=== PATIENT | female | born 1995 | race Caucasian/White ===

== ENCOUNTER 2017-05-21 17:59 | Emergency (ER) | payer BC ==
[2017-05-21 18:18] VITALS: BP 127/96
[2017-05-21] MEDS ORDERED: Sodium Chloride 0.9% 10 ML Syringe FLUSH PRN ×2 (19:01→20:42)
[2017-05-21] MEDS ORDERED: Sodium Chloride 0.9% 1,000 ML IV ONE (19:01)
[2017-05-21] MEDS ORDERED: HYDROmorphone 0.5 MG/0.5 ML Syringe IVPUSH ONE ×2 (19:02→20:03)
[2017-05-21] MEDS ORDERED: Ondansetron 4 MG/2 ML SDV IVPUSH ONE (19:03)
--- NOTE | 2017-05-21 19:09 | EDM.PDOC ---
ED HPI GENERAL MEDICAL PROBLEM - General Chief Complaint: Genitourinary Problem Stated Complaint: BLADER INFECTION Time Seen by Provider: 05/21/17 18:43 Source of Information: Reports: Patient History Limitations: Reports: No Limitations - History of Present Illness INITIAL COMMENTS - FREE TEXT/NARRATIVE: Patient is a 21-year-old female who presents to the ED complaining of generalized body aches, painful urination, and right sided CVA tenderness. Patient states she was diagnosed with a pretty bad UTI this past Monday and was placed on Macrobid and Azo. Patient states she was instructed to come back to the ED if she develops back discomfort or fever. Thus prompted ED visit. Patient states she recently came down with a cold during this time so is unclear if this is related to the recent viral upper respiratory infection. She has some sinus congestion, cough, and mild sore throat secondary to postnasal drip. Patient denies being . Past medical history: Acne Current medications include Macrobid, isotretinoin, and control pill Right Lower Back Pain Score (Numeric/FACES): 6 - Related Data Allergies Allergy/AdvReac Type Severity Reaction Status Date / Time hydrocodone Allergy Itching Verified 05/21/17 18:17 Home Meds: Home Meds Levonorgestrel-Ethin Estradiol [Orsythia-28 Tablet] 1 tab PO DAILY 02/17/16 [ History] Nitrofurantoin Macrocrystal [Nitrofurantoin] 25 mg PO Q12H 05/21/17 [History] Phenazopyridine HCl [Azo Urinary Pain Relief] 1 tab PO DAILY 05/21/17 [History] Past Medical History - Past Surgical History HEENT Surgical History: Reports: Adenoidectomy, Tonsillectomy GI Surgical History: Reports: Cholecystectomy Musculoskeletal Surgical History: Reports: Other (See Below) Other Musculoskeletal Surgeries/Procedures:: removal of osteochondroma left knee Social & Family History - Family History Family Medical History: Noncontributory - Tobacco Use Smoking Status *Q: Never Smoker - Caffeine Use Caffeine Use: Reports: Soda - Recreational Drug Use Recreational Drug Use: No - Living Situation & Occupation Living situation: Reports: Single, with Family Occupation: Employed ED ROS GENERAL - Review of Systems Review Of Systems: See Below Constitutional: Reports: Fever, Chills, Malaise, Decreased Appetite HEENT: Reports: Rhinitis, Sinus Problem, Throat Pain. Denies: Ear Pain, Throat Swelling Respiratory: Reports: Cough. Denies: Shortness of Breath, Sputum GI/Abdominal: Reports: Abdominal Pain (suprapubic), Decreased Appetite, Nausea ( mild). Denies: Diarrhea, Vomiting : Reports: Dysuria, Flank Pain (right sided CVA) Musculoskeletal: Reports: Back Pain ED EXAM, RENAL/ - Physical Exam Exam: See Below Exam Limited By: No Limitations General Appearance: Alert, WD/WN, No Apparent Distress Ears: Normal External Exam, Normal Canal, Hearing Grossly Normal, Normal TMs Nose: Normal Inspection, Normal Mucosa Throat/Mouth: Normal Inspection, Normal Oropharynx, Normal Voice, No Airway Compromise Neck: Normal Inspection, Supple, Non-Tender, Full Range of Motion. No: Lymphadenopathy (L), Lymphadenopathy (R) Respiratory/Chest: No Respiratory Distress, Lungs Clear, Normal Breath Sounds, No Accessory Muscle Use, Chest Non-Tender Cardiovascular: Normal Peripheral Pulses, Regular Rate, Rhythm GI/Abdominal: Normal Bowel Sounds, Soft, No Organomegaly, No Distention, Tender (Suprapubic tenderness ) Extremities: Normal Inspection Neurological: Alert, Oriented, CN II-XII Intact, Normal Cognition, No Motor/ Sensory Deficits Psychiatric: Normal Affect, Normal Mood Skin Exam: Warm, Dry, Intact, Normal Color Course - Vital Signs Last Recorded V/S: Last Vital Signs Temp 97.4 F 05/21/17 18:14 Pulse 132 H 05/21/17 18:14 Resp 16 05/21/17 18:14 BP 127/96 H 05/21/17 18:14 Pulse Ox 100 05/21/17 18:14 - Orders/Labs/Meds Orders: Active Orders 24 hr Category Date Time Status Peripheral IV Care [RC] . DIRECTED Care 05/21/17 19:01 Active Abdomen Pelvis w Cont [CT] Stat Exams 05/21/17 20:31 Taken Sodium Chloride 0.9% [Saline Flush] Med 05/21/17 19:01 Active 10 ml FLUSH ASDIRECTED PRN Sodium Chloride 0.9% [Saline Flush] Med 05/21/17 20:42 Active 10 ml FLUSH ONETIME PRN cefTRIAXone [Rocephin] 1 gm Med 05/21/17 22:00 Active Lidocaine 1% [Xylocaine 1%] 2.1 ml IM Q24H Peripheral IV Insertion Adult [OM.PC] Stat Oth 05/21/17 19:01 Ordered Medication Orders Ceftriaxone Sodium 1 gm/ (Lidocaine HCl 2.1 ml) 0 gm IM Q24H NHI Last Admin: 05/21/17 22:00 Dose: 1 inj Sodium Chloride (Saline Flush) 10 ml FLUSH ASDIRECTED PRN PRN Reason: Keep Vein Open Last Admin: 05/21/17 19:17 Dose: 10 ml Sodium Chloride (Saline Flush) 10 ml FLUSH ONETIME PRN PRN Reason: IV FLUSH Last Admin: 05/21/17 20:55 Dose: 10 ml Labs: Laboratory Tests 05/21/17 05/21/17 05/21/17 Range/Units 18:30 19:10 19:10 WBC 10.65 H (3.98-10.04) K/mm3 RBC 4.63 (3.98-5.22) M/mm3 Hgb 14.4 (11.2-15.7) gm/L Hct 42.3 (34.1-44.9) % MCV 91.4 (79.4-94.8) fl MCH 31.1 (25.6-32.2) pg MCHC 34.0 (32.2-35.5) g/dl RDW Std Deviation 42.5 (36.4-46.3) fL Plt Count 250 (182-369) K/mm3 MPV 10.0 (9.4-12.3) fl Neut % (Auto) 71.5 H (34.0-71.1) % Lymph % (Auto) 19.2 L (19.3-51.7) % [place] % (Auto) 8.7 (4.7-12.5) % Eos % (Auto) 0.4 L (0.7-5.8) Baso % (Auto) 0.1 (0.1-1.2) % Neut # (Auto) 7.62 H (1.56-6.13) K/mm3 Lymph # (Auto) 2.04 (1.18-3.74) K/mm3 [place] # (Auto) 0.93 H (0.24-0.36) K/mm3 Eos # (Auto) 0.04 (0.04-0.36) K/mm3 Baso # (Auto) 0.01 (0.01-0.08) K/mm3 Manual Slide Review Abnormal smear Sodium 138 (136-145) mEq/L Potassium 3.5 (3.5-5.1) mEq/L Chloride 100 (98-107) mEq/L Carbon Dioxide 28 (21-32) mEq/L Anion Gap 13.5 (5-15) BUN 9 (7-18) mg/dL Creatinine 0.9 (0.55-1.02) mg/dL Est Cr Clr Drug Dosing 107.10 mL/min Estimated GFR (MDRD) > 60 (>60) mL/min BUN/Creatinine Ratio 10.0 L (14-18) Glucose 96 (74-106) mg/dL Calcium 9.8 (8.5-10.1) mg/dL Total Bilirubin 1.1 H (0.2-1.0) mg/dL AST 18 (15-37) U/L ALT 23 (14-59) U/L Alkaline Phosphatase 73 (46-116) U/L C-Reactive Protein 11.0 H* (<1.0) mg/dL Total Protein 8.9 H (6.4-8.2) g/dl Albumin 4.4 (3.4-5.0) g/dl Globulin 4.5 gm/dL Albumin/Globulin Ratio 1.0 (1-2) HCG, Qual (NEGATIVE) Urine Color Dark yellow (Yellow) Urine Appearance Clear (Clear) Urine pH 6.5 (5.0-8.0) Ur Specific [place] 1.025 (1.005-1.030) Urine Protein 2+ H (Negative) Urine Glucose (UA) Negative (Negative) Urine Ketones 2+ H (Negative) Urine Occult Blood Negative (Negative) Urine Nitrite Negative (Negative) Urine Bilirubin 2+ H (Negative) Urine Urobilinogen 1.0 (0.2-1.0) Ur Leukocyte Esterase Negative (Negative) Urine RBC Not seen (0-5) /hpf Urine WBC 0-5 (0-5) /hpf Ur Epithelial Cells 5-10 H (0-5) /hpf Urine Bacteria Moderate H (FEW) /hpf Hyaline Casts 0-5 (0-5) /lpf Urine Mucus Moderate H (FEW) /hpf 05/21/17 Range/Units 19:10 WBC (3.98-10.04) K/mm3 RBC (3.98-5.22) M/mm3 Hgb (11.2-15.7) gm/L Hct (34.1-44.9) % MCV (79.4-94.8) fl MCH (25.6-32.2) pg MCHC (32.2-35.5) g/dl RDW Std Deviation (36.4-46.3) fL Plt Count (182-369) K/mm3 MPV (9.4-12.3) fl Neut % (Auto) (34.0-71.1) % Lymph % (Auto) (19.3-51.7) % [place] % (Auto) (4.7-12.5) % Eos % (Auto) (0.7-5.8) Baso % (Auto) (0.1-1.2) % Neut # (Auto) (1.56-6.13) K/mm3 Lymph # (Auto) (1.18-3.74) K/mm3 [place] # (Auto) (0.24-0.36) K/mm3 Eos # (Auto) (0.04-0.36) K/mm3 Baso # (Auto) (0.01-0.08) K/mm3 Manual Slide Review Sodium (136-145) mEq/L Potassium (3.5-5.1) mEq/L Chloride (98-107) mEq/L Carbon Dioxide (21-32) mEq/L Anion Gap (5-15) BUN (7-18) mg/dL Creatinine (0.55-1.02) mg/dL Est Cr Clr Drug Dosing mL/min Estimated GFR (MDRD) (>60) mL/min BUN/Creatinine Ratio (14-18) Glucose (74-106) mg/dL Calcium (8.5-10.1) mg/dL Total Bilirubin (0.2-1.0) mg/dL AST (15-37) U/L ALT (14-59) U/L Alkaline Phosphatase (46-116) U/L C-Reactive Protein (<1.0) mg/dL Total Protein (6.4-8.2) g/dl Albumin (3.4-5.0) g/dl Globulin gm/dL Albumin/Globulin Ratio (1-2) HCG, Qual Negative (NEGATIVE) Urine Color (Yellow) Urine Appearance (Clear) Urine pH (5.0-8.0) Ur Specific [place] (1.005-1.030) Urine Protein (Negative) Urine Glucose (UA) (Negative) Urine Ketones (Negative) Urine Occult Blood (Negative) Urine Nitrite (Negative) Urine Bilirubin (Negative) Urine Urobilinogen (0.2-1.0) Ur Leukocyte Esterase (Negative) Urine RBC (0-5) /hpf Urine WBC (0-5) /hpf Ur Epithelial Cells (0-5) /hpf Urine Bacteria (FEW) /hpf Hyaline Casts (0-5) /lpf Urine Mucus (FEW) /hpf Meds: Medications Generic Name Dose Route Start Last Admin Trade Name Freq PRN Reason Stop Dose Admin Ceftriaxone Sodium 1 gm/ 0 gm 05/21/17 22:00 05/21/17 22:00 Lidocaine HCl 2.1 ml IM 1 inj Q24H NHI Administration Sodium Chloride 10 ml 05/21/17 19:01 05/21/17 19:17 Saline Flush FLUSH 10 ml ASDIRECTED PRN Administration Keep Vein Open Sodium Chloride 10 ml 05/21/17 20:42 05/21/17 20:55 Saline Flush FLUSH 10 ml ONETIME PRN Administration IV FLUSH Discontinued Medications Generic Name Dose Route Start Last Admin Trade Name Freq PRN Reason Stop Dose Admin Amoxicillin/Clavulanate Potassium 1 tab 05/21/17 21:52 05/21/17 22:00 Augmentin 875 Mg/125 Mg PO 05/21/17 21:53 1 tab ONETIME ONE Administration Hydromorphone HCl 0.25 mg 05/21/17 19:02 05/21/17 19:16 Dilaudid IVPUSH 05/21/17 19:03 0.25 mg ONETIME ONE Administration Hydromorphone HCl 0.5 mg 05/21/17 20:03 05/21/17 20:06 Dilaudid IVPUSH 05/21/17 20:04 0.5 mg ONETIME ONE Administration Hydromorphone HCl Confirm 05/21/17 20:08 05/21/17 20:44 Dilaudid Administered 05/21/17 20:09 Not Given Dose 0.5 mg .ROUTE .STK-MED ONE Sodium Chloride 1,000 mls @ 999 mls/hr 05/21/17 19:01 05/21/17 19:14 Normal Saline IV 05/21/17 20:01 999 mls/hr ONETIME ONE Administration Iopamidol 125 ml 05/21/17 20:42 05/21/17 20:54 Isovue-300 (61%) IVPUSH 05/21/17 20:43 125 ml ONETIME ONE Administration Ondansetron HCl 4 mg 05/21/17 19:03 05/21/17 19:15 Zofran IVPUSH 05/21/17 19:04 4 mg ONETIME ONE Administration - Re-Assessments/Exams Free Text/Narrative Re-Assessment/Exam: Labs reviewed: White blood cell count 10.65, hemoglobin 15.4, platelets 250, neutrophil percent is 71.5, neutrophil #7.62, lymphocyte #2.04, sodium 138, potassium 3.5, AG is 13.5, creatinine 0.9, glucose 96, CRP 11.0. UA revealed protein 2+, ketones 2+, nitrates negative, bilirubin 2+, leukocyte esterase negative, urine rbc's not seen, urine wbc's 0-5, urine epithelial cells 5-10, bacteria moderate, urine mucus moderate. Appears contaminated. HCG ordered. Patient denies being . Ordered CT abdomen and pelvis with iv contrast. 05/21/17 21:26 HCG negative. Awaiting for results of CT of the abdomen and pelvis. 2135 CT the abdomen and pelvis with IV contrast impression: No acute findings. Patient's pain has improved. We'll discharge patient home with instructions as documented. Will change antibiotic from macrobid to augmentin in fear patient is developing pyelonephritis. Discharge instructions as documented. Departure - Departure Time of Disposition: 21:50 Disposition: Home, Self-Care 01 Condition: Good Clinical Impression: UTI, Urinary tract infectious disease, Pyelonephritis - Discharge Information Instructions: Pyelonephritis, Adult, [id number], Pain Medicine Instructions, [id number] Referrals: Carie Dwyer PA-C [Primary Care Provider] - Forms: ED Department Discharge Additional Instructions: Take the full course of augmenting as prescribed. Push the fluids. Utilize tylenol 650mg PO every 6 hrs and ibuprofen 600 mg every 6 hrs for pain in alternating fashion. For severe pain take norco 1 tab po every 6 [address] this evening since receiving a sedative medication. No driving while taking the norco. Push the fluids. See your PCP at conclusion of therapy to ensure resolution. Return to the E.D. for any new or worsening symptoms. Stop taking the macrobid. - My Orders Last 24 Hours: My Active Orders 05/21/17 19:01 Peripheral IV Care [RC] . DIRECTED Sodium Chloride 0.9% [Saline Flush] 10 ml FLUSH ASDIRECTED PRN Peripheral IV Insertion Adult [OM.PC] Stat 05/21/17 20:31 Abdomen Pelvis w Cont [CT] Stat 05/21/17 20:42 Sodium Chloride 0.9% [Saline Flush] 10 ml FLUSH ONETIME PRN 05/21/17 22:00 cefTRIAXone [Rocephin] 1 gm Lidocaine 1% [Xylocaine 1%] 2.1 ml IM Q24H - Assessment/Plan Last 24 Hours: My Active Orders 05/21/17 19:01 Peripheral IV Care [RC] . DIRECTED Sodium Chloride 0.9% [Saline Flush] 10 ml FLUSH ASDIRECTED PRN Peripheral IV Insertion Adult [OM.PC] Stat 05/21/17 20:31 Abdomen Pelvis w Cont [CT] Stat 05/21/17 20:42 Sodium Chloride 0.9% [Saline Flush] 10 ml FLUSH ONETIME PRN 05/21/17 22:00 cefTRIAXone [Rocephin] 1 gm Lidocaine 1% [Xylocaine 1%] 2.1 ml IM Q24H
[2017-05-21] MEDS ORDERED: HYDROmorphone 0.5 MG/0.5 ML Syringe ONE (20:08)
[2017-05-21] MEDS ORDERED: Amoxicillin/Clavulanate K 875-125 MG Tab PO ONE ×2 (20:19→21:52)
[2017-05-21] MEDS ORDERED: cefTRIAXone 1 GM in Sodium Chloride 0.9% 100 ML IV ONE (20:19)
[2017-05-21] MEDS ORDERED: Iopamidol 612 MG/ML 150 ML Bottle IVPUSH ONE (20:42)
[2017-05-21] MEDS ORDERED: cefTRIAXone 1 GM, Lidocaine 1% 2.1 ML IM SCH ×2 (22:00)
--- NOTE | 2017-05-22 17:54 | CT ---
CT abdomen and pelvis Technique: Multiple axial sections were obtained from above the dome of the diaphragm inferiorly through the pubic symphysis. Intravenous contrast was utilized. Delayed images were obtained through the bladder. No oral contrast has been given. Comparison: Previous CT abdomen and pelvis study of 10/30/14. Findings: Visualized lung bases are felt to be clear. Liver shows no focal parenchymal abnormality. Spleen appears within normal limits. Adrenal glands show no nodule. Surgical clips are seen from prior cholecystectomy. Pancreas is normal. Kidneys show symmetric contrast enhancement without hydronephrosis or mass. Delayed images show contrast within the distal ureters and within the bladder. Aorta shows no aneurysmal dilatation. No retroperitoneal adenopathy or mesenteric abnormalities are seen. Appendix is seen which appears normal. No pelvic mass or adenopathy is seen. Bone window settings were reviewed which appear within normal limits for the patient's age. Impression: 1. Nothing acute is appreciated on CT study of the abdomen and pelvis. No significant change is seen from prior CT exam. Diagnostic code #1 Agree with preliminary report issued by [facility] [facility] ([facility] preliminary report dictated on 05/21/17, 10:20 PM Central Time)
== END 2017-05-21 22:15 | disposition home or self-care (01) ==
LOC: JD.ED 17:59
DX: N12 Tubulo-interstitial nephritis, not specified as acute or chronic (principal); N39.0 Urinary tract infection, site not specified; Z88.5 Allergy status to narcotic agent; Z79.899 Other long term (current) drug therapy; Z98.890 Other specified postprocedural states; Z90.49 Acquired absence of other specified parts of digestive tract
CPT/HCPCS: 36415; 74177; 80053; 81001; 84703; 85025; 86140; 96361; 96372; 96374; 96375; 96376; 99284; A9270; J0696; J1170; J2405; J7040; J7050; Q9967

== ENCOUNTER 2019-09-23 03:56 | Inpatient (IN) | payer BC ==
[~2019-09-23 03:56] MED LIST: Bupivacaine 0.25% 10 ML SDV ONE
[2019-09-23] MEDS ORDERED: Sodium Chloride 0.9% 10 ML Syringe FLUSH PRN (04:56)
[2019-09-23] MEDS ORDERED: Ampicillin 2 GM in Sodium Chloride 0.9% 100 ML IV ONE (04:56)
[2019-09-23] MEDS ORDERED: Oxytocin/Lactated Ringers 10 UNIT/1,000 ML BAG IV SCH (05:00)
[2019-09-23] MEDS: Lactated Ringers 1,000 ML IV SCH ×2 (06:20→07:09)
[2019-09-23] MEDS ORDERED: fentaNYL 100 MCG/2 ML SDV EPIDUR PRN (06:25)
[2019-09-23] MEDS ORDERED: fentaNYL/Bupivacaine/NS 2 MCG-0.125% 250 ML EPIDUR PRN (06:25)
[2019-09-23] MEDS ORDERED: ePHEDrine 50 MG/ML SDV IVPUSH PRN (06:25)
[2019-09-23] MEDS ORDERED: diphenhydrAMINE 50 MG/ML SDV IVPUSH PRN (06:25)
--- NOTE | 2019-09-23 06:55 | PCM.PREANE ---
Preanesthetic Assessment - Procedure Proposed Procedure: albin - Anesthesia/Transfusion/Family Hx Anesthesia History: Prior Anesthesia Without Reaction Family History of Anesthesia Reaction: No Transfusion History: No Prior Transfusion(s) - Review of Systems General: No Symptoms Pulmonary: No Symptoms Cardiovascular: No Symptoms Gastrointestinal: No Symptoms Neurological: No Symptoms Other: Reports: None, Depression (past), Anxiety (past) - Physical Assessment Vital Signs: 1323/79 20 99 99% Height: 5 ft 10 in Weight: 93.894 kg ASA Class: 2 Mental Status: Alert & Oriented x3 Airway Class: Mallampati = 1 Dentition: Reports: Normal Dentition Thyro-Mental Finger Breadths: 3 Mouth Opening Finger Breadths: 3 ROM/Head Extension: Full Lungs: Clear to Auscultation, Normal Respiratory Effort Cardiovascular: Regular Rate, Regular Rhythm, No Murmurs - Lab Values: Laboratory Last Values WBC 11.81 K/mm3 (3.98-10.04) H 09/23/19 04:59 RBC 4.27 M/mm3 (3.98-5.22) 09/23/19 04:59 Hgb 12.8 gm/dl (11.2-15.7) 09/23/19 04:59 Hct 37.6 % (34.1-44.9) 09/23/19 04:59 MCV 88.1 fl (79.4-94.8) D 09/23/19 04:59 MCH 30.0 pg (25.6-32.2) 09/23/19 04:59 MCHC 34.0 g/dl (32.2-35.5) 09/23/19 04:59 RDW Std Deviation 43.7 fL (36.4-46.3) 09/23/19 04:59 Plt Count 195 K/mm3 (182-369) 09/23/19 04:59 MPV 11.0 fl (9.4-12.3) 09/23/19 04:59 Neut % (Auto) 76.1 % (34.0-71.1) H 09/23/19 04:59 Lymph % (Auto) 16.9 % (19.3-51.7) L 09/23/19 04:59 [place] % (Auto) 6.3 % (4.7-12.5) 09/23/19 04:59 Eos % (Auto) 0.1 (0.7-5.8) L 09/23/19 04:59 Baso % (Auto) 0.3 % (0.1-1.2) 09/23/19 04:59 Neut # (Auto) 9.00 K/mm3 (1.56-6.13) H 09/23/19 04:59 Lymph # (Auto) 1.99 K/mm3 (1.18-3.74) 09/23/19 04:59 [place] # (Auto) 0.74 K/mm3 (0.24-0.36) H 09/23/19 04:59 Eos # (Auto) 0.01 K/mm3 (0.04-0.36) L 09/23/19 04:59 Baso # (Auto) 0.03 K/mm3 (0.01-0.08) 09/23/19 04:59 - Allergies Allergies/Adverse Reactions: Allergies Allergy/AdvReac Type Severity Reaction Status Date / Time codeine Allergy Itching Verified 05/10/18 08:27 hydrocodone Allergy Itching Verified 09/23/19 05:23 lactose Allergy Cannot Verified 05/10/18 08:27 Remember - Blood Blood Available: No - Acknowledgements Anesthesia Type Planned: Epidural Pt an Appropriate Candidate for the Planned Anesthesia: Yes Alternatives and Risks of Anesthesia Discussed w Pt/Guardian: Yes Pt/Guardian Understands and Agrees with Anesthesia Plan: Yes PreAnesthesia Questionnaire HEENT History: Reports: Impaired Vision, Other (See Below) Other HEENT History: wears glasses Cardiovascular History: Reports: None Respiratory History: Reports: None Gastrointestinal History: Reports: GERD (with preg) Genitourinary History: Reports: None FAMILY LAW ATTORNEY History: Reports: None : 1 (39 2) Para: 0 Neurological History: Reports: None Psychiatric History: Reports: None Endocrine/Metabolic History: Reports: None Hematologic History: Reports: None Immunologic History: Reports: None Oncologic (Cancer) History: Reports: None Dermatologic History: Reports: None - Past Surgical History Head Surgeries/Procedures: Reports: None HEENT Surgical History: Reports: Adenoidectomy, Tonsillectomy Cardiovascular Surgical History: Reports: None Respiratory Surgical History: Reports: None GI Surgical History: Reports: Cholecystectomy Female Surgical History: Reports: None Male Surgical History: Reports: None Endocrine Surgical History: Reports: None Neurological Surgical History: Reports: None Musculoskeletal Surgical History: Reports: Arthroscopic Knee, Other (See Below) Other Musculoskeletal Surgeries/Procedures:: removal of osteochondroma left knee Oncologic Surgical History: Reports: None Dermatological Surgical History: Reports: None - History Comment History Comment: , multivit, calcium and vit d - SUBSTANCE USE Smoking Status *Q: Never Smoker Tobacco Use Within Last Twelve Months: No Second Hand Smoke Exposure: No Days Per Week of Alcohol Use: 0 Recreational Drug Use History: No - HOME MEDS Home Medications: Home Meds traMADol HCl [Ultram] 50 - 100 mg PO Q6H PRN #20 tablet 05/10/18 [Rx] - CURRENT (IN HOUSE) MEDS Current Meds: Current Medications Diphenhydramine HCl (Benadryl) 25 mg IVPUSH Q6H PRN PRN Reason: pruritis Ephedrine Sulfate (Ephedrine Sulfate) 5 mg IVPUSH ASDIRECTED PRN PRN Reason: Hypotension Fentanyl (Sublimaze) 100 mcg EPIDUR Q3H PRN PRN Reason: Pain Fentanyl/Bupivacaine HCl (Fentanyl/Bupivacaine/Ns 2 Mcg-0.125% 250 Ml) 250 ml EPIDUR CONTINUOUS PRN PRN Reason: Pain Lactated Ringer's (Ringers, Lactated) 1,000 mls @ 100 mls/hr IV ASDIRECTED [facility] Last Admin: 09/23/19 06:20 Dose: 999 mls/hr Ampicillin Sodium 1 gm/ Sodium (Chloride) 100 mls @ 200 mls/hr IV Q4H [facility]I Oxytocin/Lactated Ringer's (Pitocin In Lr 10 Units/1,000 Ml) 10 unit in 1,000 mls @ 500 mls/hr IV .CONTINUOUS [facility] Sodium Chloride (Saline Flush) 10 ml FLUSH ASDIRECTED PRN PRN Reason: Keep Vein Open Discontinued Medications Ampicillin Sodium 2 gm/ Sodium (Chloride) 100 mls @ 200 mls/hr IV ONETIME ONE Stop: 09/23/19 05:25
--- NOTE | 2019-09-23 07:39 | PCM.SN ---
- Free Text/Narrative Note: 09-23-19 [id number] IV started times 1 attempt right hand with a 20 guage IV.
[2019-09-23] MEDS ORDERED: Calcium Carbonate 500 MG Tab.Chew PO ONE (08:30)
[2019-09-23] MEDS ORDERED: Ampicillin 1 GM in Sodium Chloride 0.9% 100 ML IV SCH (09:00)
--- NOTE | 2019-09-23 10:03 | PCM.LDHP ---
L&D History of Present Illness - General Date of Service: 09/23/19 Admit Problem/Dx: Patient Status Order with Admit Dx/Problem 09/23/19 04:56 Patient Status [ADT] Routine 09/23/19 05:13 Admission Status [Patient Status] [ADT] Routine Admission Diagnosis/Problem Admission Diagnosis/Problem 09/23/19 09:52 Rachel is a 23-year-old 1 para 0 white female who is presently at 9-2/ 7 weeks gestational age with an GURWINDER of 09/28/2019 who is admitted on the early childhood education specialist of 09/23/2019 in active labor with progressive cervical dilation. Source of Information: Patient History Limitations: Reports: No Limitations - History of Present Illness Introduction:: Rcahel is a 23-year-old 1 para 0 white female who is presently at 39-2/ 7 weeks gestational age with an GURWINDER of 09/28/2019 who is admitted on the early childhood education specialist of 09/23/2019 in active labor with progressive cervical dilation.She began having contractions at approximately 2330 hrs. on 09/22/2019 and easily progressed to approximately every 3 minutes upon admission. Her cervix is dilated rapidly and she is having full-blown labor. She has had an epidural placed for labor analgesia. heart tones have been within normal limits. Amniotic fluid with spontaneous rupture membranes is noted to be clear. VALIDATION SCIENTIST history: Patient is a 1 para 0. GURWINDER is 09/28/2019 is based upon an early ultrasound done at 12-4/7 weeks gestational age. This supported by 2 other ultrasounds done on 05/14/2019 at 08/13/2019. Patient's care has been unremarkable. She had menarche at age 13. Cycles every 30 days. Positive hCG on 01/26/2019. No control to time conception. Last menstrual period was 01/05/2019. This was not a certain LMP. course started with first visit at 12-4/7 weeks gestational age on 03/20/2019. She had regular visits. Her vital signs were stable throughout the course. She is a centering patient. Her weight increases from 163-204.2 pounds for a 41 pound weight increase. Her fundal height growth was appropriate. Group B strep positive. She did have an abnormal glucose tolerance test at 28 weeks. Is followed by a 3 hour glucose test which was normal. Breast-feed. She declined genetic evaluation. She has a history of major depressive disorder. She did receive RhoGAM during the course of her . Patient did receive her influenza vaccination on 06/28/2019. She received her T dap shot on 07/23/2019. Laboratory testing : Blood is O- with a negative antibody screen. First hemoglobin was 14.1 g/dL. Her platelets were 244,000. Rubella titer shows immunity. RPR is nonreactive. Urine culture was negative. Hepatitis B surface antigen and HIV assays were both negative. Her chlamydia and gonorrhea assays were both negative. Second trimester labs showed hemoglobin 12.2 g/dL and platelets of 229,000. One-hour GTT was 140. Her fasting blood sugar was 84. One-hour GTT was 172. Her 2 hour glucose of 172. Her preoperative glucose 118. Rh immune antibody was given on 06/28/2019. Group B strep screen positive. Allergies: 1. Hydrocodone 2. Lactose intolerant Medications: 1. vitamins Past medical history: History of major depressive episode. 2. History of abnormal Pap smear Past surgical history: 1. Tonsillectomy and adenoidectomy 2016 2. Laparoscopic cholecystectomy 2014 3. Arthroscopy of her knee 2013 4. Tibial surgery 2013. Social history: Patient is single. Father baby is Gibran. 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 She lives in [facility]. Her mother is Marley Valdovinos. She does not use any significant most alcohol, drugs or tobacco. Review of systems: In general patient has no complaints. She was alessio regularly with some discomfort on admission. Baby has been active. Skin: Negative Lungs: No infectious symptoms or shortness of breath Cardiovascular: No chest pain or exercise intolerance Breasts: Changes associated with . Patient plans to breast-feed.. GI: Negative : changes Musculoskeletal: Negative Neurological: Negative In general the patient is well-developed, well-nourished, pleasant female of stated age in no acute distress. On last evaluation in clinic on 09/16/2019 blood pressures 135/75. Weight was 202.4 pounds. Pregravid weight was 163 pounds. Height is 5 feet 10 inches. Prepregnancy body mass index was 23. Skin is warm dry without lesions. HEENT, neck and back within normal limits. Lungs are clear with good breath sounds in all lung meraz. Cardiovascular exam shows regular and rhythm without murmurs. Breast exam is deferred. Plan to breast-feed. Abdomen is gravid with last fundal height at 39.5 cm. Baby in vertex presentation. Genital per usual exam on last evaluation clinic was 2 cm, 70% effaced, soft, posterior position, -3 station. On nursing evaluation upon admission patient was 4 cm dilated.. Extremities and neurological exam are grossly within normal limits. Pain Score: 0 - Related Data Allergies/Adverse Reactions: Allergies Allergy/AdvReac Type Severity Reaction Status Date / Time codeine Allergy Itching Verified 05/10/18 08:27 hydrocodone Allergy Itching Verified 09/23/19 05:23 lactose Allergy Cannot Verified 05/10/18 08:27 Remember Home Medications: Home Meds Mv-Mn/Iron/FA/Herbal/Digestive [ One Tablet] 1 tab PO DAILY 09/23/19 [ History] Past Medical History HEENT History: Reports: Impaired Vision, Other (See Below) Other HEENT History: wears glasses Cardiovascular History: Reports: None Respiratory History: Reports: None Gastrointestinal History: Reports: GERD Genitourinary History: Reports: None VALIDATION SCIENTIST History: Reports: None Neurological History: Reports: None Psychiatric History: Reports: None Endocrine/Metabolic History: Reports: None Hematologic History: Reports: None Immunologic History: Reports: None Oncologic (Cancer) History: Reports: None Dermatologic History: Reports: None - Past Surgical History Head Surgeries/Procedures: Reports: None HEENT Surgical History: Reports: Adenoidectomy, Tonsillectomy Cardiovascular Surgical History: Reports: None Respiratory Surgical History: Reports: None GI Surgical History: Reports: Cholecystectomy Female Surgical History: Reports: None Endocrine Surgical History: Reports: None Neurological Surgical History: Reports: None Musculoskeletal Surgical History: Reports: Arthroscopic Knee, Other (See Below) Other Musculoskeletal Surgeries/Procedures:: removal of osteochondroma left knee Oncologic Surgical History: Reports: None Dermatological Surgical History: Reports: None - History Comment History Comment: , multivit, calcium and vit d Social & Family History - Family History Family Medical History: Noncontributory - Tobacco Use Smoking Status *Q: Never Smoker Second Hand Smoke Exposure: No - Caffeine Use Caffeine Use: Reports: None - Alcohol Use Days Per Week of Alcohol Use: 0 - Recreational Drug Use Recreational Drug Use: No - Living Situation & Occupation Living situation: Reports: Single, with Family Occupation: Employed H&P Review of Systems - Review of Systems: Review Of Systems: See Below L&D Exam - Exam Exam: See Below - Vital Signs Vital Signs: Last Vital Signs Temp 36.8 C 09/23/19 08:45 Pulse 88 09/23/19 08:45 Resp 16 09/23/19 08:45 BP 120/78 09/23/19 08:45 Pulse Ox 98 09/23/19 08:45 Weight: 93.894 kg - Patient Data Lab Results Last 24 hrs: Laboratory Results - last 24 hr 09/23/19 09/23/19 Range/Units 04:59 04:59 WBC 11.81 H (3.98-10.04) K/mm3 RBC 4.27 (3.98-5.22) M/mm3 Hgb 12.8 (11.2-15.7) gm/dl Hct 37.6 (34.1-44.9) % MCV 88.1 D (79.4-94.8) fl MCH 30.0 (25.6-32.2) pg MCHC 34.0 (32.2-35.5) g/dl RDW Std Deviation 43.7 (36.4-46.3) fL Plt Count 195 (182-369) K/mm3 MPV 11.0 (9.4-12.3) fl Neut % (Auto) 76.1 H (34.0-71.1) % Lymph % (Auto) 16.9 L (19.3-51.7) % Nuckolls % (Auto) 6.3 (4.7-12.5) % Eos % (Auto) 0.1 L (0.7-5.8) Baso % (Auto) 0.3 (0.1-1.2) % Neut # (Auto) 9.00 H (1.56-6.13) K/mm3 Lymph # (Auto) 1.99 (1.18-3.74) K/mm3 Nuckolls # (Auto) 0.74 H (0.24-0.36) K/mm3 Eos # (Auto) 0.01 L (0.04-0.36) K/mm3 Baso # (Auto) 0.03 (0.01-0.08) K/mm3 Blood Type O NEGATIVE Gel Antibody Screen Negative Result Diagrams: 09/23/19 04:59 Problem List Initiated/Reviewed/Updated: Yes Orders Last 24hrs: Active Orders 24 hr Category Date Time Status Admission Status [Patient Status] [ADT] Routine ADT 09/23/19 05:13 Active Activity as Tolerated [RC] PFP Care 09/23/19 04:56 Active Communication Order [RC] ASDIRECTED Care 09/23/19 04:56 Active Heart Tones [RC] ASDIRECTED Care 09/23/19 04:57 Active Non Stress Test [RC] PER UNIT ROUTINE Care 09/23/19 04:09 Active Notify Provider [RC] ASDIRECTED Care 09/23/19 06:25 Active Notify Provider [RC] PFP Care 09/23/19 04:56 Active Notify Provider [RC] PRN Care 09/23/19 04:56 Active Peripheral IV Care [RC] . DIRECTED Care 09/23/19 04:57 Active Vital Signs [RC] PER UNIT ROUTINE Care 09/23/19 04:09 Active Vital Signs [RC] PER UNIT ROUTINE Care 09/23/19 04:56 Active RAPID PLASMA REAGIN,RPR [CHEM] Routine Lab 09/23/19 04:59 Received Ampicillin 1 gm Med 09/23/19 09:00 Active Sodium Chloride 0.9% [Normal Saline] 100 ml IV Q4H Bupivicaine/fentaNYL/NS [fentaNYL/Bupivacaine/NS 2 MCG- Med 09/23/19 06:25 Active 0.125% 250 ML] 250 ml EPIDUR CONTINUOUS PRN Lactated Ringers [Ringers, Lactated] 1,000 ml Med 09/23/19 05:00 Active IV ASDIRECTED Oxytocin/Lactated Ringers [Pitocin in LR 10 Units/1,000 Med 09/23/19 05:00 Active ML] 10 unit in 1,000 ml IV .CONTINUOUS Sodium Chloride 0.9% [Saline Flush] Med 09/23/19 04:56 Active 10 ml FLUSH ASDIRECTED PRN diphenhydrAMINE [Benadryl] Med 09/23/19 06:25 Active 25 mg IVPUSH Q6H PRN ePHEDrine [ePHEDrine sulfate] Med 09/23/19 06:25 Active 5 mg IVPUSH ASDIRECTED PRN fentaNYL [Sublimaze] Med 09/23/19 06:25 Active 100 mcg EPIDUR Q3H PRN Electronic Heart Tones Ext w TOCO [WOMSER] Oth 09/23/19 04:56 Ordered Routine Electronic Heart Tones Internal [WOMSER] Per Unit Oth 09/23/19 04:56 Ordered Routine Peripheral IV Insertion Adult [OM.PC] Routine Oth 09/23/19 04:56 Ordered Resuscitation Status Routine Resus Stat 09/23/19 04:09 Ordered Medication Orders Diphenhydramine HCl (Benadryl) 25 mg IVPUSH Q6H PRN PRN Reason: pruritis Ephedrine Sulfate (Ephedrine Sulfate) 5 mg IVPUSH ASDIRECTED PRN PRN Reason: Hypotension Fentanyl (Sublimaze) 100 mcg EPIDUR Q3H PRN PRN Reason: Pain Last Admin: 09/23/19 06:40 Dose: 100 mcg Fentanyl/Bupivacaine HCl (Fentanyl/Bupivacaine/Ns 2 Mcg-0.125% 250 Ml) 250 ml EPIDUR CONTINUOUS PRN PRN Reason: Pain Last Admin: 09/23/19 07:15 Dose: 250 ml Lactated Ringer's (Ringers, Lactated) 1,000 mls @ 100 mls/hr IV ASDIRECTED NHI Last Admin: 09/23/19 07:09 Dose: 999 mls/hr Infusion: 09/23/19 07:09 Dose: 999 mls/hr Admin: 09/23/19 06:20 Dose: 999 mls/hr Ampicillin Sodium 1 gm/ Sodium (Chloride) 100 mls @ 200 mls/hr IV Q4H NHI Oxytocin/Lactated Ringer's (Pitocin In Lr 10 Units/1,000 Ml) 10 unit in 1,000 mls @ 500 mls/hr IV .CONTINUOUS NHI Sodium Chloride (Saline Flush) 10 ml FLUSH ASDIRECTED PRN PRN Reason: Keep Vein Open Assessment/Plan Comment:: 1.39-2/7 week intrauterine , active labor, arrest of cervical dilation. 2. Group B strep positive status. Patient is received her first dose of antibiotic 3. Labor pain control with epidural 4. Patient has received her T dap, influenza vaccination and is rubella immune. 5. Patient plans to breast-feed. 6. Relatively low risk . 7. Patient is a centering patient. Plan: 1. Anticipate normal spontaneous vaginal delivery 2. Epidural for labor analgesia 3. Patient has received her first dose of ampicillin per group B strep protocol 4. CBC and RPR have been performed. 5. Support breast-feeding decision.
[2019-09-23] MEDS ORDERED: Calcium Carbonate 500 MG Tab.Chew PO PRN (10:59)
--- NOTE | 2019-09-23 12:28 | PCM.SN ---
- Free Text/Narrative Note: Delivery note: Rachel is a 23-year-old 1 para 0 white female who is presently at 39-2/ 7 weeks gestational age with an GURWINDER of 09/28/2019 who is admitted on the program clerk of 09/23/2019 in active labor with progressive cervical dilation.She began having contractions at approximately 2330 hrs. on 09/22/2019 and easily progressed to approximately every 3 minutes upon admission. Her cervix is dilated rapidly and she is having full-blown labor. She has had an epidural placed for labor analgesia. heart tones have been within normal limits. Amniotic fluid with spontaneous rupture membranes is noted to be clear.Rachel became completely dilated at approximately 1100 hrs. She pushed for approximately an hour and a half and delivered a viable, hanley, female infant at 1207 hrs. on 09/23/2019. scores were 8 and 9, weight was 3580 g ( 7 pounds 14.3 ounces), length was 20.0 inches. Baby delivered in the direct occiput anterior position. The baby was placed on mom's abdomen and nose and mouth were bulb suctioned and baby was dried. Pitocin was increased to 500 mL/h to facilitate increase in uterine tone and decreased likelihood of bleeding. Cord was allowed to pulsate for 1-2 minutes and then was clamped 2 and cut by the baby's father Gibran. Blood was obtained. Cord had 3 vessels. Patient is noted to have a right vaginal laceration. This was repaired with interrupted and a short running suture of 3-0 Monocryl in a routine fashion. Epidural analgesia was used for anesthesia. Patient tolerated this very well. Placenta delivered in a Marquis fashion, appeared intact and complete and was discarded per patient desire. Estimated blood loss was 200 mL. Patient plans to breast-feed. Condition: Good
[2019-09-23] MEDS ORDERED: Docusate Sodium 100 MG Cap PO PRN (12:35)
[2019-09-23] MEDS ORDERED: Benzocaine/Menthol 20%-0.5% Spray 56 GM Canister TOP PRN (12:35)
[2019-09-23] MEDS ORDERED: Acetaminophen 325 MG Tab PO PRN (12:35)
[2019-09-23] MEDS ORDERED: Witch Hazel Medicated Pads 40/Jar TOP PRN (12:35)
[2019-09-23] MEDS: Ibuprofen 600 MG Tab PO PRN ×2 (14:12→20:29)
[2019-09-24] MEDS: Ibuprofen 600 MG Tab PO PRN ×4 (00:07→20:04)
--- NOTE | 2019-09-24 07:34 | PCM.SN ---
- Free Text/Narrative Note: note: Day 1 Patient is doing well in the period. Minimal lochia, voiding well, ambulated without problems. Nursing without concerns. Patient is afebrile, vital signs are stable Abdomen is flat, soft, uterus is below the umbilicus and is firm and nontender. Legs are nontender. Assessment: recovery going well. Plan: Routine care. Patient be discharged home within the next 24-48 hours.
--- NOTE | 2019-09-24 09:11 | PCM48HPAN ---
Post Anesthesia Note - EVALUATION WITHIN 48HRS OF ANESTHETIC Vital Signs in Normal Range: Yes Patient Participated in Evaluation: Yes Respiratory Function Stable: Yes Airway Patent: Yes Cardiovascular Function Stable: Yes Hydration Status Stable: Yes Pain Control Satisfactory: Yes Nausea and Vomiting Control Satisfactory: Yes Mental Status Recovered: Yes Vital Signs: Last Vital Signs Temp 97.5 F 09/24/19 04:03 Pulse 66 09/24/19 04:03 Resp 14 09/24/19 04:03 BP 122/83 09/24/19 04:03 Pulse Ox 100 09/24/19 04:03 - COMMENTS/OBSERVATIONS Free Text/Narrative:: pleased with epidural
--- NOTE | 2019-09-25 07:40 | PCM.DCSUM1 ---
Discharge Summary - Hospital Course Free Text/Narrative:: Rachel is a 23-year-old 1 para 0 white female who is presently at 39-2/ 7 weeks gestational age with an GURWINDER of 09/28/2019 who is admitted on the food processing chemist of 09/23/2019 in active labor with progressive cervical dilation.She began having contractions at approximately 2330 hrs. on 09/22/2019 and easily progressed to approximately every 3 minutes upon admission. Her cervix is dilated rapidly and she is having full-blown labor. She has had an epidural placed for labor analgesia. heart tones have been within normal limits. Amniotic fluid with spontaneous rupture membranes is noted to be clear.Rachel became completely dilated at approximately 1100 hrs. She pushed for approximately an hour and a half and delivered a viable, hanley, female at 1207 hrs. on 09/23/2019. scores were 8 and 9, weight was 3580 g ( 7 pounds 14.3 ounces), length was 20.0 inches. Baby delivered in the direct occiput anterior position. The baby was placed on mom's abdomen and nose and mouth were bulb suctioned and baby was dried. Pitocin was increased to 500 mL/h to facilitate increase in uterine tone and decreased likelihood of bleeding. Cord was allowed to pulsate for 1-2 minutes and then was clamped 2 and cut by the baby's father Gibran. Blood was obtained. Cord had 3 vessels. Patient is noted to have a right vaginal laceration. This was repaired with interrupted and a short running suture of 3-0 Monocryl in a routine fashion. Epidural analgesia was used for anesthesia. Patient tolerated this very well. Placenta delivered in a Marquis fashion, appeared intact and complete and was discarded per patient desire. Estimated blood loss was 200 mL. patient is done well. She is ambulating well, has minimal lochia, voiding without concerns. She is breast-feeding well. She has no concerns and is desiring discharge home. Condition: Good Diagnosis: Stroke: No - Discharge Data Discharge Date: 09/25/19 Discharge Disposition: Home, Self-Care 01 Condition: Good - Referral to Home Health Primary Care Physician: Дмитрий Foster MD - Patient Instructions Diet: Regular Diet as Tolerated (Nursing diet with increase calories and calcium is recommended) Activity: As Tolerated (No intercourse or tampons until bleeding resolves) Driving: May Drive Today Showering/Bathing: May Shower (May take a bath) Notify Provider of: Fever, Increased Pain, Swelling and Redness, Nausea and/or Vomiting - Discharge Plan Home Medications: Home Meds Mv-Mn/Iron/FA/Herbal/Digestive [ One Tablet] 1 tab PO DAILY 09/23/19 [ History] Acetaminophen [Tylenol] 650 mg PO Q4H PRN tablet 09/25/19 [Rx] Ibuprofen [Motrin] 600 mg PO Q4H PRN tablet 09/25/19 [Rx] Referrals: Дмитрий Foster MD [Primary Care Provider] - (Return to clinicDr. Foster2 weeks.) - Discharge Summary/Plan Comment DC Time >30 min.: No Discharge Summary/Plan Comment: Discharge instructions: 1. Discharge home 2. Diet, activity and follow-up discussed with patient. Recommend nursing diet with increased calories and calcium. 3. Precautions given concern increased pain, bleeding, temperature, signs/ symptoms of DVT/PE. 4. Medications per home medication was printed, discussed with and given to the patient. 5. Return to clinic-Dr. Foster--Gabi in 2 weeks. Diagnosis: Term -delivered Condition: Good - Patient Data Vitals - Most Recent: Last Vital Signs Temp 36.6 C 09/24/19 15:10 Pulse 84 09/25/19 05:46 Resp 16 09/25/19 05:46 BP 137/58 L 09/25/19 05:46 Pulse Ox 97 09/25/19 05:46 Weight - Most Recent: 93.894 kg I&O - Last 24 hours: Intake & Output 09/24/19 09/25/19 09/25/19 22:59 06:59 14:59 Intake Total 60 Balance 60 Lab Results - Last 24 hrs: Laboratory Results - last 24 hr 09/23/19 Range/Units 21:13 Blood Type O NEGATIVE Gel Antibody Screen Negative Screen 0 ros/5 flds - neg RhIG Candidate? Yes Rhogam Indicated Yes, baby rh pos H Med Orders - Current: Current Medications Acetaminophen (Tylenol) 650 mg PO Q4H PRN PRN Reason: mild pain or fever Benzocaine/Menthol (Dermoplast Pain Relief [place]) 0 gm TOP ASDIRECTED PRN PRN Reason: Perineal Comfort Measure Last Admin: 09/23/19 14:15 Dose: 1 can Docusate Sodium (Colace) 100 mg PO BID PRN PRN Reason: Constipation Last Admin: 09/24/19 08:28 Dose: 100 mg Ibuprofen (Motrin) 600 mg PO Q4H PRN PRN Reason: Mild pain or fever Last Admin: 09/24/19 20:04 Dose: 600 mg Witch Melanie (Tucks) 1 pad TOP ASDIRECTED PRN PRN Reason: Pain Last Admin: 09/23/19 14:15 Dose: 1 tub Discontinued Medications Bupivacaine HCl (Sensorcaine-Mpf 0.25%) 10 ml .ROUTE .STK-MED ONE Stop: 09/23/19 00:01 Calcium Carbonate/Glycine (Tums) 1,000 mg PO ONETIME ONE Stop: 09/23/19 08:31 Last Admin: 09/23/19 08:30 Dose: 1,000 mg Calcium Carbonate/Glycine (Tums) 1,000 mg PO Q2H PRN PRN Reason: Indigestion Last Admin: 09/23/19 11:05 Dose: 1,000 mg Diphenhydramine HCl (Benadryl) 25 mg IVPUSH Q6H PRN PRN Reason: pruritis Ephedrine Sulfate (Ephedrine Sulfate) 5 mg IVPUSH ASDIRECTED PRN PRN Reason: Hypotension Fentanyl (Sublimaze) 100 mcg EPIDUR Q3H PRN PRN Reason: Pain Last Admin: 09/23/19 06:40 Dose: 100 mcg Fentanyl/Bupivacaine HCl (Fentanyl/Bupivacaine/Ns 2 Mcg-0.125% 250 Ml) 250 ml EPIDUR CONTINUOUS PRN PRN Reason: Pain Last Admin: 09/23/19 07:15 Dose: 250 ml Ampicillin Sodium 2 gm/ Sodium (Chloride) 100 mls @ 200 mls/hr IV ONETIME ONE Stop: 09/23/19 05:25 Last Admin: 09/23/19 07:00 Dose: 200 mls/hr Lactated Ringer's (Ringers, Lactated) 1,000 mls @ 100 mls/hr IV ASDIRECTED NHI Last Admin: 09/23/19 07:09 Dose: 999 mls/hr Ampicillin Sodium 1 gm/ Sodium (Chloride) 100 mls @ 200 mls/hr IV Q4H [facility] Last Admin: 09/23/19 10:54 Dose: 200 mls/hr Oxytocin/Lactated Ringer's (Pitocin In Lr 10 Units/1,000 Ml) 10 unit in 1,000 mls @ 500 mls/hr IV .CONTINUOUS NHI Sodium Chloride (Saline Flush) 10 ml FLUSH ASDIRECTED PRN PRN Reason: Keep Vein Open
[2019-09-25 12:27] VITALS: BP 113/77; PULSE 88
== END 2019-09-25 11:30 | disposition home or self-care (01) | DRG 560 ==
LOC: JD.OBCHECK 03:56 → JD.OB 04:04 → JD.OBCHECK 04:55 → JD.OB 04:56 → OBSVTOIN 12:07 → JD.OB 12:08
PROVIDERS: ADMIT Obstetrics & Gynecology; ATTEND Obstetrics & Gynecology
PROC: 10E0XZZ Delivery of Products of Conception, External Approach (ICD-10-PCS; principal; 2019-09-23)
PROC: 0UQGXZZ Repair Vagina, External Approach (ICD-10-PCS; 2019-09-23)
PROC: 3E0R3BZ Introduction of Anesthetic Agent into Spinal Canal, Percutaneous Approach (ICD-10-PCS; 2019-09-23)
DX: O99.824 Streptococcus B carrier state complicating childbirth (principal); O71.4 Obstetric high vaginal laceration alone; Z37.0 Single live birth; Z79.899 Other long term (current) drug therapy; Z88.8 Allergy status to other drugs, medicaments and biological substances; Z90.49 Acquired absence of other specified parts of digestive tract; Z3A.39 39 weeks gestation of pregnancy; Z90.89 Acquired absence of other organs; Z98.890 Other specified postprocedural states; Z88.5 Allergy status to narcotic agent
CPT/HCPCS: 01967; 36415; 51702; 59025; 59409; 85025; 85461; 86592; 86850; 86900; 86901; A9270-GY; J0290; J2790; J3010; J3490; J7050; J7120

== ENCOUNTER 2025-05-11 10:41 | Inpatient (IN) | payer OTHER ==
[2025-05-11] MEDS ORDERED: Sodium Chloride 0.9% 10 ML Syringe FLUSH PRN (10:59)
[2025-05-11] MEDS ORDERED: Nalbuphine 10 MG/1 ML Vial IVPUSH PRN (10:59)
[2025-05-11] MEDS ORDERED: Ondansetron 4 MG/2 ML SDV IVPUSH PRN (10:59)
[2025-05-11] MEDS: Lactated Ringers 1,000 ML IV SCH (11:00)
[2025-05-11] MEDS ORDERED: Oxytocin/0.9 % Sodium Chloride 30 UNIT/500 ML BAG IV SCH ×2 (11:00)
[2025-05-11 11:19] LABS: BASOPHILS ABSOLUTE AUTO 0.0 K/mm3 (0.0-0.2); BASOPHILS PERCENT AUTO 0.5 % (0.0-1.0); EOSINOPHILS ABSOLUTE AUTO 0.0 K/mm3 (0.0-0.4); EOSINOPHILS PERCENT AUTO 0.2 % (0.0-6.0); IMMATURE GRAN ABSOLUTE AUTO 0.03 K/mm3 (0.00-0.05); IMMATURE GRAN PERCENT AUTO 0.3 % (0.0-0.4); LYMPHOCYTES ABSOLUTE AUTO 2.6 K/mm3 (1.0-4.8); LYMPHOCYTES PERCENT AUTO 30.2 % (24.0-44.0); MEAN PLATELET VOLUME 11.6 fl (9.4-12.3); MONOCYTES ABSOLUTE AUTO 0.7 K/mm3 (0.0-0.8); MONOCYTES PERCENT AUTO 7.6 % (0.0-8.0); NEUTROPHILS ABSOLUTE AUTO 5.3 K/mm3 (1.8-7.7); NEUTROPHILS PERCENT AUTO 61.2 % (41.0-71.0); NRBC ABSOLUTE 0.00 (0.00-0.02); NRBC PERCENT 0.0 % (0.0-0.2); RED BLOOD CELL COUNT 3.94 M/mm3 (4.10-5.30); WHITE BLOOD CELL COUNT,WBC 8.60 K/mm3 (3.9-11.3)
[2025-05-11 11:21] LABS: PLATELET COUNT,PLT 150 K/mm3 (150-400)
[2025-05-11] MEDS: Oxytocin/0.9 % Sodium Chloride 30 UNIT/500 ML BAG IV SCH (11:45)
[2025-05-11] MEDS ORDERED: Magnesium Hydroxide 400 MG/5 ML Susp 30 ML Cup PO PRN (14:34)
[2025-05-11] MEDS: Witch Hazel Medicated Pads 40/Jar TOP PRN (14:46)
[2025-05-11] MEDS: Benzocaine/Menthol 20%-0.5% Spray 78 GM Cannister TOP PRN (14:46)
[2025-05-12] MEDS: Prenatal Multivitamin with Calcium/Folic Acid/Iron Tab PO SCH (09:12)
[2025-05-12 09:13] VITALS: BP 126/83; PULSE 89
== END 2025-05-12 11:30 | disposition home or self-care (01) | DRG 807 ==
LOC: JD.OBCHECK 10:41 → JD.MS 10:42 → JD.OB 10:42 → JD.OBCHECK 10:59 → JD.MS 10:59 → OBSVTOIN 11:42 → JD.OB 11:43
PROVIDERS: ADMIT Obstetrics & Gynecology; ATTEND Obstetrics & Gynecology
PROC: 30233S1 Transfusion of Nonautologous Globulin into Peripheral Vein, Percutaneous Approach (ICD-10-PCS; principal; 2025-05-11)
PROC: 10907ZC Drainage of Amniotic Fluid, Therapeutic from Products of Conception, Via Natural or Artificial Opening (ICD-10-PCS; principal; 2025-05-11)
PROC: 10E0XZZ Delivery of Products of Conception, External Approach (ICD-10-PCS; principal; 2025-05-11)
PROC: 0HQ9XZZ Repair Perineum Skin, External Approach (ICD-10-PCS; principal; 2025-05-11)
PROC: 3E0R3BZ Introduction of Anesthetic Agent into Spinal Canal, Percutaneous Approach (ICD-10-PCS; principal; 2025-05-11)
DX: O99.344 Other mental disorders complicating childbirth (principal); Z37.0 Single live birth; Z3A.39 39 weeks gestation of pregnancy; O70.0 First degree perineal laceration during delivery; O24.420 Gestational diabetes mellitus in childbirth, diet controlled; Z90.49 Acquired absence of other specified parts of digestive tract; Z98.890 Other specified postprocedural states
CPT/HCPCS: 36415; 59025; 59409; 82947; 85025; 85461; 86592; 86850; 86900; 86901; A9270-GY; J2791; J7120; J7999